=== PATIENT | female | born 1970 | race Caucasian/White ===

== ENCOUNTER 2016-12-24 02:25 | Emergency (ER) | payer BC, MEDICARE ==
[2016-12-24] MEDS ORDERED: BABY ASPIRIN 81 MG CHEW PO ONE (02:50)
[2016-12-24] MEDS ORDERED: Valium 5 MG PO PRN (02:53)
--- NOTE | 2016-12-24 02:55 | ERPHSYRPT ---
- History of Present Illness Time Seen by Provider: 12/24/16 02:40 Source: patient Exam Limitations: no limitations Physician History: FOR THE PAST 2 DAYS PT HAS HAD DIZZINESS(BOTH VERTIGO AND DISEQUILIBRIUM), SORE THROAT AND DIARRHEA X7 WITHOUT BLOOD; FOR THE PAST 6.5 HOURS SHORTNESS OF AIR, INTERMITTENT CHEST PRESSURE LASTING UP TO A FEW SECONDS PER EPISODE, FAST HEART RATE, NUMBNESS OF THE FEET AND PRURITUS. LAST DOSE OF CLONOPIN WAS 2 DAYS AGO. Allergies/Adverse Reactions: Sulfa (Sulfonamide Antibiotics) [Sulfa(Sulfonamide Antibiotics)] Allergy ( Verified 12/24/16 03:58) Home Medications: No Home Meds 1 ea MC UD 12/24/16 [History] Hx Tetanus, Diphtheria Vaccination/Date Given: Yes (up to date) Hx Influenza Vaccination/Date Given: No Hx Pneumococcal Vaccination/Date Given: No - Review of Systems Ears, Nose, & Throat: Throat Pain Respiratory: Dyspnea Cardiac: Other (CHEST PRESSURE AND FAST HEART RATE) Abdominal/Gastrointestinal: Diarrhea, No Vomiting Skin: Pruritis Neurological: Dizziness, Sensory Changes (NUMB FEET) Psychological: Anxiety All Other Systems: Reviewed and Negative - Past Medical History Pertinent Past Medical History: Yes Neurological History: Stroke Cardiac History: Congenital Heart Disease, Other Musculoskeletal History: Other Psycho-Social History: Depression Other Medical History: bjne-sgsfguwaxl-oykvj syndrome. tachycardia - Past Surgical History Past Surgical History: Yes Cardiac: Other Musculoskeletal: Other Female Surgical History: Section, Tubal Ligation Other Surgical History: back surgery. heart ablation - Social History Smoking Status: Former smoker How long have you smoked: 3 Exposure to second hand smoke: No Drug Use: none Patient Lives Alone: No - Female History Hx Now: No - Nursing Vital Signs Nursing Vital Signs: Initial Vital Signs Temperature 98.4 F Temperature Source Oral Pulse Rate 70 Respiratory Rate 20 Blood Pressure [] 182/94 Pain Intensity 0 - Physical Exam General Appearance: alert, anxiety Eye Exam: PERRL/EOMI, eyes nml inspection Ears, Nose, Throat Exam: pharynx normal, moist mucous membranes Neck Exam: normal inspection, full range of motion Respiratory Exam: normal breath sounds, lungs clear Cardiovascular Exam: normal heart sounds Gastrointestinal/Abdomen Exam: soft, normal bowel sounds Back Exam: normal range of motion Extremity Exam: normal inspection, No pedal edema Neurologic Exam: alert, cooperative, other (ANXIOUS) Skin Exam: warm, dry SpO2 Interpretation: normal SpO2: 97 Oxygen Delivery: Room Air - Course Nursing assessment & vital signs reviewed: Yes EKG Interpreted by Me: RATE (92), Sinus Rhythm, NORMAL AXIS, NORMAL INTERVALS - Radiology Exams Chest X-ray Interpretation: Interpreted by me, No Pneumonia Ordered Tests: Active Orders 24 hr Category Date Time Status Strap Buckler Machine STAT Care 12/24/16 02:50 Active Clean Catch Urine Specimen STAT Care 12/24/16 02:50 Active EKG-ER Only STAT Care 12/24/16 02:50 Active IV Insertion STAT Care 12/24/16 02:50 Active Pulse Oximetry (ED) STAT Care 12/24/16 02:50 Active CHEST 2 VIEWS (PA AND LAT) Stat Exams 12/24/16 02:51 Taken AMYLASE Stat Lab 12/24/16 03:22 Completed CBC W DIFF Stat Lab 12/24/16 03:22 Completed CMP Stat Lab 12/24/16 03:22 Completed HCG QUALITATIVE,SERUM Stat Lab 12/24/16 03:22 Completed LIPASE Stat Lab 12/24/16 03:22 Completed MAGNESIUM Stat Lab 12/24/16 03:22 Completed NT PRO BNP Stat Lab 12/24/16 03:22 Completed TROPONIN Q3H Lab 12/24/16 03:22 Completed TROPONIN Q3H Lab 12/24/16 06:00 Ordered TROPONIN Q3H Lab 12/24/16 09:00 Ordered TROPONIN Q3H Lab 12/24/16 12:00 Ordered TROPONIN Q3H Lab 12/24/16 15:00 Ordered UA Stat Lab 12/24/16 03:24 Completed Urine Triage Profile Stat Lab 12/24/16 03:24 Completed Medication Summary Generic Name Dose Route Start Last Admin Trade Name Freq PRN Reason Stop Dose Admin Diazepam 5 mg 12/24/16 02:53 12/24/16 03:21 Valium 5 Mg PO 01/23/17 02:52 5 mg PRN PRN Administration CIWA SCORE Sodium Chloride 1,000 mls @ 100 mls/hr 12/24/16 03:00 12/24/16 03:21 Sodium Chloride 0.9% 1000 Ml IV 01/23/17 02:59 100 mls/hr .Q10H ZHOU Administration Discontinued Medications Generic Name Dose Route Start Last Admin Trade Name Freq PRN Reason Stop Dose Admin Aspirin 324 mg 12/24/16 02:50 12/24/16 03:13 Baby Aspirin 81 Mg Chew PO 12/24/16 02:51 324 mg STAT ONE Administration Aspirin Confirm 12/24/16 05:55 Baby Aspirin 81 Mg Chew Administered 12/24/16 05:56 Dose 324 mg .ROUTE .STK-MED ONE Clonidine 0.1 mg 12/24/16 05:05 12/24/16 05:08 Catapres 0.1 Mg PO 12/24/16 05:06 0.1 mg STAT ONE Administration Clonidine Confirm 12/24/16 05:06 Catapres 0.1 Mg Administered 12/24/16 05:07 Dose 0.1 mg .ROUTE .STK-MED ONE Diazepam Confirm 12/24/16 03:17 Valium 5 Mg Administered 12/24/16 03:18 Dose 5 mg .ROUTE .STK-MED ONE Sodium Chloride Confirm 12/24/16 03:17 Sodium Chloride 0.9% 1000 Ml Administered 12/24/16 03:18 Dose 1,000 mls @ ud .ROUTE .STK-MED ONE Nitroglycerin 0.4 mg 12/24/16 02:50 12/24/16 05:07 Nitrostat 0.4 Mg (Ed) SL 12/24/16 02:51 0.4 mg STAT ONE Administration Nitroglycerin Confirm 12/24/16 05:06 Nitrostat 0.4 Mg (Ed) Administered 12/24/16 05:07 Dose 0.4 mg SL .STK-MED ONE Nitroglycerin Confirm 12/24/16 05:55 Nitrostat 0.4 Mg (Ed) Administered 12/24/16 05:56 Dose 0.4 mg SL .STK-MED ONE Potassium Chloride 10 meq 12/24/16 04:51 12/24/16 05:07 Klor Con 10 Meq PO 12/24/16 04:52 10 meq STAT ONE Administration Potassium Chloride Confirm 12/24/16 05:06 Klor Con 10 Meq Administered 12/24/16 05:07 Dose 10 meq PO .STK-MED ONE Potassium Chloride Confirm 12/24/16 05:07 Klor Con 10 Meq Administered 12/24/16 05:08 Dose 10 meq PO .STK-MED ONE Lab/Rad Data: Laboratory Result Diagrams 12/24/16 03:22 12/24/16 03:22 Laboratory Results 12/24/16 12/24/16 12/24/16 Range/Units 03:24 03:24 03:22 WBC (4.0-10.5) K/mm3 RBC (4.1-5.4) M/mm3 Hgb (12.0-16.0) gm/dl Hct (35-47) % MCV (78-100) fl MCH (26-32) pg MCHC (32-36) g/dl RDW (11.5-14.0) % Plt Count (150-450) K/mm3 MPV (6-9.5) fl Gran % (36.0-66.0) % Lymphocytes % (24.0-44.0) % Monocytes % (0.0-12.0) % Eosinophils % (0.00-5.0) % Basophils % (0.0-0.4) % Basophils # (0-0.4) Sodium (136-145) mEq/L Potassium (3.5-5.1) mEq/L Chloride (98-107) mEq/L Carbon Dioxide (21-32) mEq/L Anion Gap (5-15) MEQ/L BUN (9-20) mg/dL Creatinine (0.55-1.30) mg/dl Estimated GFR ML/MIN Glucose (70-110) MG/DL Calcium (8.5-10.1) mg/dL Magnesium (1.8-2.4) mg/dL Total Bilirubin (0.2-1.0) mg/dL AST (15-37) U/L ALT (12-78) U/L Alkaline Phosphatase (46-116) U/L Troponin I < 0.017 (0.000-0.056) ng/ml NT-Pro-B Natriuret Pep (0-125) pg/ml Serum Total Protein (6.4-8.2) gm/dL Albumin (3.4-5.0) g/dL Amylase (25-115) U/L Lipase (73-393) U/L Serum , Qual (Negative) Ur Collection Type CLEAN CATCH Urine Color YELLOW (YELLOW) Urine Appearance CLEAR (CLEAR) Urine pH 5.5 (5-6) Ur Specific [place] 1.020 (1.005-1.025) Urine Protein NEGATIVE (Negative) Urine Glucose (UA) NEGATIVE (NEGATIVE) mg/dL Urine Ketones NEGATIVE (NEGATIVE) Urine Nitrite NEGATIVE (NEGATIVE) Urine Bilirubin NEGATIVE (NEGATIVE) Urine Urobilinogen 0.2 (0-1) mg/dL Urine WBC (Auto) NEGATIVE (NEGATIVE) Urine RBC (Auto) NEGATIVE (0-5) Vicente/ul Urine Opiates Level NEG. (NEGATIVE) Ur Methadone NEG. (NEGATIVE) Urine Barbiturates NEG. (NEGATIVE) Ur Phencyclidine (PCP) NEG. (NEGATIVE) Urine Amphetamine POS. (NEGATIVE) U Benzodiazepine Level NEG. (NEGATIVE) Urine Cocaine NEG. (NEGATIVE) Urine Marijuana (THC) NEG. (NEGATIVE) Specimen Received 12/24/16 0320 12/24/16 12/24/16 12/24/16 Range/Units 03:22 03:22 03:22 WBC 9.8 (4.0-10.5) K/mm3 RBC 4.50 (4.1-5.4) M/mm3 Hgb 12.8 (12.0-16.0) gm/dl Hct 39.6 (35-47) % MCV 88.0 (78-100) fl MCH 28.4 (26-32) pg MCHC 32.3 (32-36) g/dl RDW 13.7 (11.5-14.0) % Plt Count 277 (150-450) K/mm3 MPV 9.4 (6-9.5) fl Gran % 59.2 (36.0-66.0) % Lymphocytes % 30.2 (24.0-44.0) % Monocytes % 7.3 (0.0-12.0) % Eosinophils % 3.1 (0.00-5.0) % Basophils % 0.2 (0.0-0.4) % Basophils # 0.02 (0-0.4) Sodium 141 (136-145) mEq/L Potassium 3.4 L (3.5-5.1) mEq/L Chloride 104 (98-107) mEq/L Carbon Dioxide 26.8 (21-32) mEq/L Anion Gap 13.9 (5-15) MEQ/L BUN 11 (9-20) mg/dL Creatinine 0.70 (0.55-1.30) mg/dl Estimated GFR > 60 ML/MIN Glucose 93 (70-110) MG/DL Calcium 8.0 L (8.5-10.1) mg/dL Magnesium 1.9 (1.8-2.4) mg/dL Total Bilirubin 0.5 (0.2-1.0) mg/dL AST 9 L (15-37) U/L ALT 16 (12-78) U/L Alkaline Phosphatase 45 L (46-116) U/L Troponin I (0.000-0.056) ng/ml NT-Pro-B Natriuret Pep 361 H (0-125) pg/ml Serum Total Protein 6.3 L (6.4-8.2) gm/dL Albumin 3.4 (3.4-5.0) g/dL Amylase 25 (25-115) U/L Lipase 101 (73-393) U/L Serum , Qual NEGATIVE (Negative) Ur Collection Type Urine Color (YELLOW) Urine Appearance (CLEAR) Urine pH (5-6) Ur Specific [place] (1.005-1.025) Urine Protein (Negative) Urine Glucose (UA) (NEGATIVE) mg/dL Urine Ketones (NEGATIVE) Urine Nitrite (NEGATIVE) Urine Bilirubin (NEGATIVE) Urine Urobilinogen (0-1) mg/dL Urine WBC (Auto) (NEGATIVE) Urine RBC (Auto) (0-5) Vicente/ul Urine Opiates Level (NEGATIVE) Ur Methadone (NEGATIVE) Urine Barbiturates (NEGATIVE) Ur Phencyclidine (PCP) (NEGATIVE) Urine Amphetamine (NEGATIVE) U Benzodiazepine Level (NEGATIVE) Urine Cocaine (NEGATIVE) Urine Marijuana (THC) (NEGATIVE) Specimen Received - Departure Time of Disposition: 06:00 Departure Disposition: Home Clinical Impression: AMPHETAMINE USE, DIZZINESS, DIARRHEA, ANXIETY, CHEST PRESSURE, HTN, MILD HYPOKALEMIA Condition: Fair Critical Care Time: No Referrals: SKYLA GAR [Primary Care Provider] - Instructions: Vertigo, Diarrhea and Traveler's Diarrhea -- Adult Additional Instructions: FOLLOW UP WITH PRIVATE DOCTOR TOMORROW. Prescriptions: Meclizine HCl 25 mg [Antivert 25 mg] 25 mg PO Q8H PRN PRN #20 tablet PRN Reason: Dizziness
[2016-12-24] MEDS ORDERED: Sodium Chloride 0.9% 1000 ML 1,000 ML IV SCH (03:00)
[2016-12-24] MEDS: Nitrostat 0.4 MG (ED) SL ONE ×2 (03:13→05:07)
[2016-12-24] MEDS ORDERED: Valium 5 MG ONE (03:17)
[2016-12-24] MEDS ORDERED: Sodium Chloride 0.9% 1000 ML 1,000 ML ONE (03:17)
[2016-12-24 03:29] LABS: BASOPHIL % 0.2 % (0.0-0.4); Eosinophil % 3.1 % (0.00-5.0); Granulocytes % 59.2 % (36.0-66.0); Lymphocytes % 30.2 % (24.0-44.0); Mean Corpuscular Hemoglobin 28.4 pg (26-32); Mean Platelet Volume 9.4 fl (6-9.5); Monocytes % 7.3 % (0.0-12.0); Platelet Count 277 K/mm3 (150-450); Red Cell Distribution Width 13.7 % (11.5-14.0); White Blood Count 9.8 K/mm3 (4.0-10.5)
[2016-12-24 04:09] LABS: Collection Type CLEAN CATCH
[2016-12-24 04:10] LABS: COMPLETE URINE MICROSCOPIC? NO; Ph 5.5 (5-6)
[2016-12-24 04:22] LABS: ALBUMIN 3.4 g/dL (3.4-5.0); ALKALINE PHOSPHATASE 45 U/L (46-116); ANION GAP 13.9 MEQ/L (5-15); BILIRUBIN,TOTAL 0.5 mg/dL (0.2-1.0); BLOOD UREA NITROGEN 11 mg/dL (9-20); CHLORIDE 104 mEq/L (98-107); Carbon Dioxide 26.8 mEq/L (21-32); Glucose 93 MG/DL (70-110); LIPASE 101 U/L (73-393); MAGNESIUM 1.9 mg/dL (1.8-2.4); Potassium 3.4 mEq/L (3.5-5.1); SGOT/AST 9 U/L (15-37); SGPT/ALT 16 U/L (12-78); SODIUM 141 mEq/L (136-145); Total Protein 6.3 gm/dL (6.4-8.2)
[2016-12-24] MEDS ORDERED: Klor Con 10 MEQ PO ONE ×3 (04:51→05:07)
[2016-12-24] MEDS ORDERED: Catapres 0.1 MG PO ONE (05:05)
[2016-12-24] MEDS ORDERED: Nitrostat 0.4 MG (ED) SL ONE ×2 (05:06→05:55)
[2016-12-24] MEDS ORDERED: Catapres 0.1 MG ONE (05:06)
[2016-12-24 05:44] VITALS: O2SAT 97
[2016-12-24] MEDS ORDERED: BABY ASPIRIN 81 MG CHEW ONE (05:55)
[2016-12-24 06:23] VITALS: BP 164/100; PULSE 72
--- NOTE | 2016-12-24 08:55 | XRAY ---
Indication: Chest pain. Comparison: July 10, 2016 PA/lateral chest demonstrates stable left apical calcified granuloma. Remaining heart and lungs normal. Bony thorax intact again with mild scoliosis.
== END 2016-12-24 06:10 | disposition home or self-care (01) ==
LOC: ED 02:25
DX: F15.90 Other stimulant use, unspecified, uncomplicated (principal); R42 Dizziness and giddiness; R19.7 Diarrhea, unspecified; F41.9 Anxiety disorder, unspecified; R07.89 Other chest pain; I10 Essential (primary) hypertension; E87.6 Hypokalemia; J02.9 Acute pharyngitis, unspecified; R06.02 Shortness of breath; I45.6 Pre-excitation syndrome; R00.0 Tachycardia, unspecified
CPT/HCPCS: 36000; 36415; 71020; 80053; 80307; 81002; 82150; 83690; 83735; 83880; 84484; 84703; 85025; 93005; 93041; 99284

== ENCOUNTER 2017-08-08 18:51 | Emergency (ER) | payer MEDICARE ==
[2017-08-08 19:04] VITALS: O2SAT 97
[2017-08-08] MEDS ORDERED: Eye-Stream Solution OP ONE (19:17)
[2017-08-08] MEDS ORDERED: Fluor-I-Strip/Ful-Flo OP ONE ×2 (19:17→19:19)
[2017-08-08] MEDS ORDERED: Eye-Stream Solution ONE (19:19)
[2017-08-08] MEDS ORDERED: TETRACAINE 0.5% STERI-UNIT SOL OP ONE (19:20)
[2017-08-08] MEDS ORDERED: TETRACAINE 0.5% STERI-UNIT SOL OP STA (19:20)
[2017-08-08] MEDS ORDERED: Ciloxan OPHTH OP ONE (19:27)
--- NOTE | 2017-08-08 19:35 | ERPHSYRPT ---
- History of Present Illness Time Seen by Provider: 08/08/17 19:13 Source: patient Exam Limitations: no limitations Patient Subjective Stated Complaint: Pt states "I was getting false eyelashes put on my left eye and I got some of the glue in my eye. I flushed my eyes yesterday and today, I called the eye DrEli today and he told me if I was getting some sinus drainaige and swelling in my eye I needed to come to the ED. " Triage Nursing Assessment: PT alert and oriented X 3, skin pwd pt ambulates without difficulty, pt rt eye is red, swollen. Physician History: 46 year old white female arrives with complaint of pain in her right eye since getting eye lash glue in her left eye since yesterday Timing/Duration: yesterday Location: left eye Apparent Injury: yes (patient got eyelash glue in her left eye) Associated Symptoms: pain, redness, other (runny nose) Visual Assistive Devices: Contacts Chemical Exposure: Yes (eyelash glue) Trauma: No Welding Arc/Tanning Bed Exposure: No Allergies/Adverse Reactions: Sulfa (Sulfonamide Antibiotics) [Sulfa(Sulfonamide Antibiotics)] Allergy ( Verified 08/08/17 19:04) Home Medications: Hydrocodone Bit/Acetaminophen [Hydrocodon-Acetaminoph 7.5-325] 1 each PO DAILY 08/08/17 [History] Zolpidem Tartrate [Ambien] 10 mg PO HS 08/08/17 [History] Hx Tetanus, Diphtheria Vaccination/Date Given: Yes Hx Influenza Vaccination/Date Given: No Hx Pneumococcal Vaccination/Date Given: No Immunizations Up to Date: Yes - Review of Systems Constitutional: No Fever, No Chills Eyes: Eye Pain, Eye Redness, Tearing, Foreign Body Sensation Ears, Nose, & Throat: Nose Discharge (runny nose), No Ear Pain, No Ear Discharge , No Hearing Changes, No Tinnitus, No Nose Pain, No Nose Congestion Respiratory: No Cough, No Dyspnea Cardiac: No Chest Pain, No Edema, No Syncope Abdominal/Gastrointestinal: No Abdominal Pain, No Nausea, No Vomiting, No Diarrhea Genitourinary Symptoms: No Dysuria Musculoskeletal: No Back Pain, No Neck Pain Skin: No Rash Neurological: No Dizziness, No Focal Weakness, No Sensory Changes Psychological: No Symptoms Endocrine: No Symptoms All Other Systems: Reviewed and Negative - Past Medical History Pertinent Past Medical History: Yes Neurological History: Stroke Cardiac History: Congenital Heart Disease, Other Musculoskeletal History: Other Psycho-Social History: Depression Other Medical History: oyzv-orwveearch-kxygy syndrome. tachycardia - Past Surgical History Past Surgical History: Yes Cardiac: Other Musculoskeletal: Other Female Surgical History: Section, Tubal Ligation Other Surgical History: back surgery. heart ablation - Social History Smoking Status: Never smoker How long have you smoked: 3 Exposure to second hand smoke: No Drug Use: none Patient Lives Alone: Yes - Female History Hx Last Menstrual Period: menopause Hx Now: No - Nursing Vital Signs Nursing Vital Signs: Initial Vital Signs Temperature 98.8 F 08/08/17 18:55 Pulse Rate 112 H 08/08/17 18:55 Respiratory Rate 18 08/08/17 18:55 Blood Pressure 159/104 08/08/17 18:55 O2 Sat by Pulse Oximetry 97 08/08/17 18:55 Pain Scale Pain Intensity 4 - Physical Exam General Appearance: moderate distress Vision Acuity Degree Evaluation Phase: Corrected Vision Acuity Right Eye: 20/50 Vision Acuity Left Eye: 20/200 Eye Exam: right eye: normal inspection, left eye: conjunctival inflammation, corneal abrasion, bilateral eye: PERRL, EOMI, other (euyes perrla eomi fundi unremarkable left conjunctiva erythematous , left sclera injected, fundi unremarkable) Ears, Nose, Throat Exam: TMs normal, pharynx normal, moist mucous membranes Neck Exam: normal inspection, non-tender, supple, full range of motion Respiratory Exam: normal breath sounds, lungs clear, airway intact, No chest tenderness, No respiratory distress Cardiovascular Exam: regular rate/rhythm, normal heart sounds, normal peripheral pulses Gastrointestinal Exam: soft, normal bowel sounds, No tenderness, No distention, No mass, No guarding, No rebound Extremity Exam: normal inspection, normal range of motion Neurologic: alert, oriented x 3, cooperative, recoil spring winder II-XII nml as tested SpO2 Interpretation: normal (97%) SpO2: 97 Oxygen Delivery: Room Air - Course Nursing assessment & vital signs reviewed: Yes Ordered Tests: Active Orders 24 hr Category Date Time Status Visual Acuity STAT Care 08/08/17 19:17 Active Medication Summary Discontinued Medications Generic Name Dose Route Start Last Admin Trade Name Freq PRN Reason Stop Dose Admin Ciprofloxacin 2.5 ml 08/08/17 19:27 Ciloxan Ophth OP 08/08/17 19:28 STAT ONE Ciprofloxacin Confirm 08/08/17 19:36 Ciloxan Ophth Administered 08/08/17 19:37 Dose 2.5 ml .ROUTE .STK-MED ONE Eye Irrigation Solution 15 ml 08/08/17 19:17 08/08/17 19:23 Eye-Stream Solution OP 08/08/17 19:18 15 ml STAT ONE Administration Eye Irrigation Solution Confirm 08/08/17 19:19 Eye-Stream Solution Administered 08/08/17 19:20 Dose 30 ml .ROUTE .STK-MED ONE Fluorescein Sodium 1 mg 08/08/17 19:17 08/08/17 19:23 Wlsje-S-Dgmap/Ful-Steven OP 08/08/17 19:18 1 mg STAT ONE Administration Fluorescein Sodium Confirm 08/08/17 19:19 [place]-R-Ildye/Ful-Steven Administered 08/08/17 19:20 Dose 1 mg OP .STK-MED ONE Tetracaine HCl 4 ml 08/08/17 19:20 08/08/17 19:22 Tetracaine 0.5% Steri-Unit Hedy OP 08/08/17 19:21 4 ml STAT STA Administration Tetracaine HCl Confirm 08/08/17 19:20 Tetracaine 0.5% Steri-Unit Hedy Administered 08/08/17 19:21 Dose 4 ml OP .STK-MED ONE - Progress Progress: improved Progress Note: 08/08/17 19:36 This is a 46-year-old white female she arrives with complaint of pain in her left eye since yesterday redness in her left eye. Patient states that she got eyelash glue in her left eye yesterday she has had pain since she states she had a bilateral runny nose which had dried up on the right side after taking Claritin she states she continues to have runny nose on the left. She states she has somewhat blurry vision on the left. I examination eyes PERRLA EOMI fundi are unremarkable. Left sclerae is injected left conjunctiva is erythematous. Both lids everted left eye no foreign bodies are noted. 0.5% tetracaine instilled into the left eye to facilitate examination left eye is stained with flourisc patient with a small 1 mm abrasion to the left anterior cornea , Left eye is rinsed with sterile Dacriose And Ciloxan drops 0.3% instilled in the patient's left eye. Impression chemical conjunctivitis. Corneal abrasion. Foreign-body sensation. Plan Ciloxan drops 0.3% left eye one to 2 drops 4 times a day for 5 days. Pain medications as prescribed by your family doctor at home. No reading no TV watching no computers drive home with car window shut. Follow-up with your bell maker tomorrow. Return for acute distress or for severe symptoms 08/08/17 19:39 - Departure Time of Disposition: 19:40 Departure Disposition: Home Clinical Impression: Chemical conjunctivitis of left eye, foreign body sensation left eye Corneal abrasion, left Qualifiers: Encounter type: initial encounter Qualified Code(s): S05.02XA - Injury of conjunctiva and corneal abrasion without foreign body, left eye, initial encounter Condition: Fair Critical Care Time: No Referrals: HOLLY MORGAN [Primary Care Provider] - Additional Instructions: Return home. Ciloxan drops 0.3% one to 2 drops left eye 4 times a day for 5 days. days pain medications as prescribed by your family doctor. Ibuprofen every 6 hours as needed for pain. No contacts for a week or until cleared by your bell maker. No TV watching no computer's no reading. Drive home with windows closed in the car. Follow-up with your bell maker tomorrow. Return for acute distress or for severe symptoms
[2017-08-08] MEDS ORDERED: Ciloxan OPHTH ONE (19:36)
[2017-08-08 19:46] VITALS: BP 150/100; PULSE 82
== END 2017-08-08 19:55 | disposition home or self-care (01) ==
LOC: ED 18:51
DX: S05.02XA Injury of conjunctiva and corneal abrasion without foreign body, left eye, initial encounter (principal); H10.212 Acute toxic conjunctivitis, left eye
CPT/HCPCS: 99283; A9270-GY

== ENCOUNTER 2018-08-14 05:20 | Emergency (ER) | payer MEDICARE ==
--- NOTE | 2018-08-14 06:05 | ERPHSYRPT ---
- History of Present Illness Time Seen by Provider: 08/14/18 06:00 Source: patient, EMS Exam Limitations: no limitations Patient Subjective Stated Complaint: pt states she was vomiting and has uncontrollable itching. Triage Nursing Assessment: pt alert and oriented. pt reports seeing a "black film" on her legs and has uncontrolled itching, welts and bug bites on her body. no raised red areas noted. pt moving in bed continuously. pt scratching at arms and abd. speech slurred, tearful at times. abd soft and nontender, bowel sounds present x4. no emesis. Physician History: The patient is a 47-year-old female brought in by ambulance at the request of a friend complaining that she has uncontrolled itching all over her body and continuous movement of her legs. She states she has been vomiting. She was at a hotel and thought there were bedbugs in the room. She said that there is a black film all over her body. She states she moved to [place] to avoid drugs. She is back in the area for short visit. She has a history of drug abuse. She said she took a small his dose possible of Valium that she had for a sleep aid. Timing/Duration: today Severity: moderate Modifying Factors: Improves With: nothing Associated Symptoms: vomiting, rash Allergies/Adverse Reactions: Sulfa (Sulfonamide Antibiotics) [Sulfa(Sulfonamide Antibiotics)] Allergy ( Verified 08/14/18 05:40) Hives Home Medications: Hydrocodone Bit/Acetaminophen [Hydrocodon-Acetaminoph 7.5-325] 1 each PO DAILY 08/08/17 [History] Zolpidem Tartrate [Ambien] 10 mg PO HS 08/08/17 [History] Hx Tetanus, Diphtheria Vaccination/Date Given: Yes Hx Influenza Vaccination/Date Given: No Hx Pneumococcal Vaccination/Date Given: No Immunizations Up to Date: Yes - Review of Systems Constitutional: No Fever, No Chills Eyes: No Symptoms Ears, Nose, & Throat: No Symptoms Respiratory: No Cough, No Dyspnea Cardiac: No Chest Pain, No Edema, No Syncope Abdominal/Gastrointestinal: No Abdominal Pain, No Nausea, No Vomiting, No Diarrhea Genitourinary Symptoms: No Dysuria Musculoskeletal: No Back Pain, No Neck Pain Skin: Rash Neurological: No Dizziness, No Focal Weakness, No Sensory Changes Psychological: Drug Abuse Endocrine: No Symptoms Hematologic/Lymphatic: No Symptoms Immunological/Allergic: No Symptoms All Other Systems: Reviewed and Negative - Past Medical History Pertinent Past Medical History: Yes Neurological History: Stroke Cardiac History: Congenital Heart Disease, Hypertension, Other Musculoskeletal History: Other Psycho-Social History: Depression Other Medical History: [id number] syndrome. tachycardia - Past Surgical History Past Surgical History: Yes Cardiac: Other Musculoskeletal: Other Female Surgical History: Section, Tubal Ligation Other Surgical History: back surgery. heart ablation - Social History Smoking Status: Never smoker How long have you smoked: 3 Exposure to second hand smoke: No Drug Use: narcotics Patient Lives Alone: Yes - Female History Hx Last Menstrual Period: last month Hx Now: No - Nursing Vital Signs Nursing Vital Signs: Initial Vital Signs Temperature 97.7 F 08/14/18 05:25 Pulse Rate 106 H 08/14/18 05:25 Respiratory Rate 20 08/14/18 05:25 Blood Pressure 174/111 08/14/18 05:25 O2 Sat by Pulse Oximetry 96 08/14/18 05:25 Pain Scale Pain Intensity 0 - Physical Exam General Appearance: moderate distress, anxiety Eye Exam: other (conjunctival inflammation) Ears, Nose, Throat Exam: pharynx normal, dry mucous membranes Neck Exam: normal inspection, non-tender, supple, full range of motion Respiratory Exam: normal breath sounds, lungs clear, No respiratory distress Cardiovascular Exam: tachycardia Gastrointestinal/Abdomen Exam: soft, normal bowel sounds, No tenderness, No mass Pelvic Exam: not done Rectal Exam: not done Back Exam: normal inspection, normal range of motion, No CVA tenderness, No vertebral tenderness Extremity Exam: normal inspection, normal range of motion, pelvis stable Neurologic Exam: alert, cooperative, confusion, agitation, intoxicated appearance, slurred speech Skin Exam: normal color, warm, dry, No rash Lymphatic Exam: No adenopathy SpO2 Interpretation: normal SpO2: 98 Oxygen Delivery: Room Air Ordered Tests: Active Orders 24 hr Category Date Time Status Litigation Partner STAT Care 08/14/18 06:06 Active Clean Catch Urine Specimen STAT Care 08/14/18 06:06 Active EKG-ER Only STAT Care 08/14/18 06:06 Active IV Insertion STAT Care 08/14/18 06:06 Active CBC W DIFF Stat Lab 08/14/18 06:22 Completed CMP Stat Lab 08/14/18 06:22 Completed CULTURE,URINE Stat Lab 08/14/18 06:22 Received ETHYL ALCOHOL Stat Lab 08/14/18 06:22 Completed UA W/ MICROSCOPIC Stat Lab 08/14/18 06:22 Completed Urine Triage Profile Stat Lab 08/14/18 06:23 Ordered Medication Summary Generic Name Dose Route Start Last Admin Trade Name Brandi PRN Reason Stop Dose Admin Sodium Chloride 1,000 mls @ 999 mls/hr 08/14/18 06:06 08/14/18 06:29 Sodium Chloride 0.9% 1000 Ml IV 08/14/18 07:06 999 mls/hr .Q1H1M STA Administration Discontinued Medications Generic Name Dose Route Start Last Admin Trade Name Brandi PRN Reason Stop Dose Admin Sodium Chloride Confirm 08/14/18 06:26 Sodium Chloride 0.9% 1000 Ml Administered 08/14/18 06:27 Dose 1,000 mls @ ud .ROUTE .STK-MED ONE Lorazepam 2 mg 08/14/18 06:06 08/14/18 06:29 Ativan 2 Mg/1 Ml Vial IV 08/14/18 06:07 2 mg STAT ONE Administration Lorazepam Confirm 08/14/18 06:26 Ativan 2 Mg/1 Ml Vial Administered 08/14/18 06:27 Dose 2 mg .ROUTE .STK-MED ONE Ondansetron HCl 4 mg 08/14/18 06:06 08/14/18 06:30 Zofran 4 Mg/2 Ml Vial IV 08/14/18 06:07 4 mg STAT ONE Administration Ondansetron HCl Confirm 08/14/18 06:26 Zofran 4 Mg/2 Ml Vial Administered 08/14/18 06:27 Dose 4 mg .ROUTE .STK-MED ONE Lab/Rad Data: Laboratory Result Diagrams 08/14/18 06:22 08/14/18 06:22 Laboratory Results 08/14/18 08/14/18 08/14/18 Range/Units 06:22 06:22 06:22 WBC 9.7 (4.0-10.5) K/mm3 RBC 4.37 (4.1-5.4) M/mm3 Hgb 12.9 (12.0-16.0) gm/dl Hct 38.1 (35-47) % MCV 87.2 (78-100) fl MCH 29.5 (26-32) pg MCHC 33.9 (32-36) g/dl RDW 12.2 (11.5-14.0) % Plt Count 275 (150-450) K/mm3 MPV 9.7 H (6-9.5) fl Gran % 65.8 (36.0-66.0) % Eos # (Auto) 0.51 H (0-0.5) Absolute Lymphs (auto) 1.52 (1.0-4.6) Absolute Monos (auto) 1.21 (0.0-1.3) Lymphocytes % 15.7 L (24.0-44.0) % Monocytes % 12.5 H (0.0-12.0) % Eosinophils % 5.3 H (0.00-5.0) % Basophils % 0.7 (0.0-0.4) % Absolute Granulocytes 6.37 (1.4-6.9) Basophils # 0.07 (0-0.4) Sodium 137 (137-145) mmol/L Potassium 3.1 L (3.5-5.1) mmol/L Chloride 98 (98-107) mmol/L Carbon Dioxide 28 (22-30) mmol/L Anion Gap 14.1 (5-15) MEQ/L BUN 16 (7-17) mg/dL Creatinine 0.74 (0.52-1.04) mg/dL Estimated GFR > 60.0 ML/MIN Glucose 112 H (74-106) mg/dL Calcium 9.3 (8.4-10.2) mg/dL Total Bilirubin 0.70 (0.2-1.3) mg/dL AST 26 (14-36) U/L ALT 15 (0-35) U/L Alkaline Phosphatase 70 (38-126) U/L Serum Total Protein 6.9 (6.3-8.2) g/dL Albumin 4.3 (3.5-5.0) g/dL Ur Collection Type CLEAN CATCH Urine Color YELLOW (YELLOW) Urine Appearance CLOUDY (CLEAR) Urine pH 5.0 (5-6) Ur Specific [place] 1.030 (1.005-1.025) Urine Protein 50 (Negative) Urine Ketones MODERATE (NEGATIVE) Urine Blood 50 (0-5) Vicente/ul Urine Nitrite NEGATIVE (NEGATIVE) Urine Bilirubin NEGATIVE (NEGATIVE) Urine Urobilinogen NORMAL (0-1) mg/dL Ur Leukocyte Esterase 2+ (NEGATIVE) Urine Microscopic RBC 25-50 (0-2) /HPF Urine Microscopic WBC 15-25 (0-5) /HPF Ur Epithelial Cells MODERATE (FEW) /HPF Urine Bacteria FEW (NEGATIVE) /HPF Hyaline Casts 2-5 (0-2) /LPF Urine Mucus MODERATE (NEGATIVE) /HPF Urine Culture Reflexed YES (NO) Urine Glucose NEGATIVE (NEGATIVE) mg/dL Ethyl Alcohol < 10 (0-10) mg/dL - Progress Progress: improved Counseled pt/family regarding: lab results, diagnosis - Departure Time of Disposition: 07:01 Departure Disposition: Home Clinical Impression: Drug abuse, Hypokalemia Condition: Stable Critical Care Time: No Referrals: HOLLY MORGAN [Primary Care Provider] -
[2018-08-14] MEDS ORDERED: Zofran 4 MG/2 ML VIAL IV ONE (06:06)
[2018-08-14] MEDS ORDERED: Sodium Chloride 0.9% 1000 ML 1,000 ML IV STA (06:06)
[2018-08-14] MEDS ORDERED: Ativan 2 MG/1 ML VIAL IV ONE (06:06)
[2018-08-14 06:23] LABS: BASOPHIL % 0.7 % (0.0-0.4); Basophil (Absolute #) 0.07 (0-0.4); Eosinophil % 5.3 % (0.00-5.0); Eosinophil (Absolute #) 0.51 (0-0.5); Granulocyte Absolute (ANC) 6.37 (1.4-6.9); Granulocytes % 65.8 % (36.0-66.0); Hematocrit 38.1 % (35-47); Hemoglobin 12.9 gm/dl (12.0-16.0); Lymphocyte (Absolute #) 1.52 (1.0-4.6); Lymphocytes % 15.7 % (24.0-44.0); Mean Cell Volume 87.2 fl (78-100); Mean Corpuscular Hemoglobin 29.5 pg (26-32); Mean Corpuscular Hgb Concent. 33.9 g/dl (32-36); Mean Platelet Volume 9.7 fl (6-9.5); Monocyte (Absolute #) 1.21 (0.0-1.3); Monocytes % 12.5 % (0.0-12.0); Platelet Count 275 K/mm3 (150-450); Red Blood Count 4.37 M/mm3 (4.1-5.4); Red Cell Distribution Width 12.2 % (11.5-14.0); White Blood Count 9.7 K/mm3 (4.0-10.5)
[2018-08-14 06:24] LABS: Appearance CLOUDY (CLEAR); Bilirubin NEGATIVE (NEGATIVE); Blood 50 Ery/ul (0-5); Glucose NEGATIVE (NEGATIVE); Ketones MODERATE (NEGATIVE); Leukocyte Esterase 2+ (NEGATIVE); Nitrite NEGATIVE (NEGATIVE); Protein,Urine Dip 50 (Negative); Urobilinogen NORMAL mg/dL (0-1)
[2018-08-14] MEDS ORDERED: Zofran 4 MG/2 ML VIAL ONE (06:26)
[2018-08-14] MEDS ORDERED: Ativan 2 MG/1 ML VIAL ONE (06:26)
[2018-08-14] MEDS ORDERED: Sodium Chloride 0.9% 1000 ML 1,000 ML ONE (06:26)
[2018-08-14 06:31] LABS: Bacteria FEW /HPF (NEGATIVE); Epithelial Cells MODERATE /HPF (FEW); Mucus MODERATE /HPF (NEGATIVE); RBC 25-50 /HPF (0-2); WBC 15-25 /HPF (0-5)
[2018-08-14 06:40] LABS: ALBUMIN 4.3 g/dL (3.5-5.0); ALKALINE PHOSPHATASE 70 U/L (38-126); ANION GAP 14.1 MEQ/L (5-15); BLOOD UREA NITROGEN 16 mg/dL (7-17); CHLORIDE 98 mmol/L (98-107); Calcium 9.3 mg/dL (8.4-10.2); Carbon Dioxide 28 mmol/L (22-30); Creatinine 1 0.74 mg/dL (0.52-1.04); Glucose 112 mg/dL (74-106); Potassium 3.1 mmol/L (3.5-5.1); SGOT/AST 26 U/L (14-36); SGPT/ALT 15 U/L (0-35); SODIUM 137 mmol/L (137-145); Total Protein 6.9 g/dL (6.3-8.2)
[2018-08-14 06:42] LABS: ETHYL ALCOHOL < 10 mg/dL (0-10)
[2018-08-14 06:44] LABS: Barbiturate,Urine NEGATIVE (NEGATIVE); Benzodiazepine,Urine POSITIVE (NEGATIVE); Cocaine,Urine NEGATIVE (NEGATIVE); Methadone,Urine NEGATIVE (NEGATIVE); Opiate,Urine NEGATIVE (NEGATIVE); PCP,Urine NEGATIVE (NEGATIVE); THC,Urine NEGATIVE (NEGATIVE)
[2018-08-14] MEDS ORDERED: Klor Con 10 MEQ PO ONE ×2 (07:01→07:10)
[2018-08-14 07:16] LABS: Amphetamine,Urine POSITIVE (NEGATIVE)
[2018-08-14 13:52] VITALS: BP 123/82; PULSE 78; O2SAT 96
== END 2018-08-14 15:00 | disposition home or self-care (01) ==
LOC: ED 05:20
DX: F19.10 Other psychoactive substance abuse, uncomplicated (principal); E87.6 Hypokalemia; Z79.899 Other long term (current) drug therapy
CPT/HCPCS: 36000; 36415; 80053; 80307; 81000; 85025; 87086; 93005; 93041; 96360; 96374; 96375; 99285; J2060; J2405; A9270-GY; G0480